=== PATIENT | female | born 1980 | race African-American/Black ===

== ENCOUNTER 2018-11-12 11:03 | Outpatient (CLI) | payer OTHER, SELFPAY ==
[2018-11-12 11:33] LABS: #Eosinphils 0.1 thou/uL (0.0-0.7); #Lymphocytes 1.1 thou/uL (1.20-3.40); #Monocytes 0.2 thou/uL (0.11-0.59); #Neutrophils 1.8 thou/uL (1.40-6.50); %Eosinophils 1.8 % (0.0-10.0); %Lymphocytes 34.9 % (21.0-51.0); %Monocytes 6.5 % (0.0-10.0); %Neutrophils 55.8 % (42.0-75.0); Hemoglobin 10.6 g/dL (12.0-16.0); Mean Corpuscular HGB CONC 30.8 g/dL (32.0-36.0); Mean Corpuscular Hemoglobin 25.6 pg (27.0-31.0); Mean Corpuscular Volume 83.2 fL (78.0-98.0); Mean Platelet Volume 6.9 fL (7.4-10.4); Platelet Count 230 thou/uL (130-400); RBC Distribution Width 15.4 % (11.5-14.5); Red Blood Cell (RBC) Count 4.12 mill/uL (4.20-5.40); White Blood Cell (WBC) Count 3.2 thou/uL (4.8-10.8)
[2018-11-12 11:45] LABS: ALT (SGPT) 15 U/L (8-55); AST (SGOT) 12 U/L (5-34); Alkaline Phosphatase 60 U/L (40-150); Anion Gap 11 mmol/L (10-20); BUN (Urea Nitrogen) 11 mg/dL (7.0-18.7); Bilirubin, Total 0.2 mg/dL (0.2-1.2); Calc. Creatinine Clearance 0 mL/min (70-130); Calcium 9.3 mg/dL (7.8-10.44); Carbon Dioxide 26 mmol/L (22-29); Cardiac Risk 4.3 (Less than 4.5); Chloride 106 mmol/L (98-107); Cholesterol 202 mg/dl (< 200 Desired); Estimated GFR-MDRD Greater than 90; Globulin 3.7 g/dL (2.4-3.5); Glucose 97 mg/dL (70-105); HDL Cholesterol 47 mg/dL (>60 Neg Risk); LDL Cholesterol, Calculated 141 mg/dL; Potassium 4.1 mmol/L (3.5-5.1); Protein, Total 7.7 g/dL (6.0-8.3); Sodium 139 mmol/L (136-145); Triglycerides 70 mg/dL (Less than 150)
--- NOTE | 2018-11-12 11:48 | RAD ---
XR Lumbar Spine 2 Or 3 View: 11/12/2018 11:19 AM CLINICAL INDICATION: Lumbago with sciatica COMPARISON: 03/01/2015 FINDINGS: Fracture:No fracture. Arthropathy:Mild multilevel change with slight progression Incidental findings:Moderate retained fecal material colon. IMPRESSION: 1. No acute osseous abnormality. 2. Mild degenerative change.
[2018-11-12 12:04] LABS: Thyroid Stimulating Hormone 1.2229 uIU/mL (0.35-4.94)
[2018-11-12 17:37] LABS: Vitamin D, 25 Hydroxy 7.3 ng/ml (> 30.0)
== END 2018-11-12 11:04 | disposition home or self-care (01) ==
LOC: MADLABBHPM 11:03
PROVIDERS: ATTEND Family Medicine
DX: Z00.00 Encounter for general adult medical examination without abnormal findings (principal); M54.41 Lumbago with sciatica, right side; M47.816 Spondylosis without myelopathy or radiculopathy, lumbar region
CPT/HCPCS: 36415; 72100; 80053; 80061; 82306; 83036; 84443; 85025

== ENCOUNTER 2018-12-23 00:12 | Emergency (ER) | payer OTHER, MEDICAID | END 2018-12-23 00:35 | disposition home or self-care (01) | LOC: MADERS 00:12 | DX: M25.562 Pain in left knee (principal); E66.9 Obesity, unspecified; I10 Essential (primary) hypertension; Z79.899 Other long term (current) drug therapy | CPT/HCPCS: 99281 ==

== ENCOUNTER 2021-06-12 14:51 | Emergency (ER) | payer MEDICAID ==
[2021-06-12] MEDS ORDERED: Dexamethasone 10 MG/ML VIAL ONE (17:09)
[2021-06-12 17:32] LABS: Bilirubin Negative (Negative); Blood, Urine Negative (Negative); Glucose, Urine (Dipstick) Negative (Negative); Ketone, Urine 15 mg/dL (Negative); Leukocyte Negative (Negative); Nitrite Negative (Negative); Protein, Urine (Dipstick) 30 mg/dL (Neg-Trace); Specific Gravity, Urine 1.025 (1.005-1.030)
[2021-06-12 17:33] LABS: Clarity Hazy (Clear)
[2021-06-12 17:34] LABS: Pregnancy Test - Urine (BHCG) Negative (Negative); Pregu Control Background? CLEAR/WHITE (CLR/WHITE); Pregu Control Bar Appear? YES (CONTROL BAR); Specific Gravity 1.025 (1.002-1.036)
[2021-06-12 17:38] LABS: Bacteria/HPF 1+ HPF (None Seen); RBC/HPF 0-3 HPF (0-3); Trichomonas/HPF 1+ HPF (None Seen)
[2021-06-13 14:00] LABS: SARS-CoV-2 PCR by NAA DETECTED (NotDetected)
== END 2021-06-12 15:49 | disposition home or self-care (01) ==
LOC: MADERS 14:51
DX: U07.1 COVID-19 (principal); M54.50 Low back pain, unspecified; I10 Essential (primary) hypertension; E66.9 Obesity, unspecified
CPT/HCPCS: 81003; 81015; 81025; 96372; 99283; J1100; U0003; U0005

== ENCOUNTER 2021-08-27 15:09 | Emergency (ER) | payer OTHER, MEDICAID ==
[2021-08-27] MEDS ORDERED: Ibuprofen 800 MG TAB ONE (16:17)
== END 2021-08-27 17:07 | disposition home or self-care (01) ==
LOC: MADERS 15:09
DX: S63.501A Unspecified sprain of right wrist, initial encounter (principal); I10 Essential (primary) hypertension; X50.0XXA Overexertion from strenuous movement or load, initial encounter; Y92.89 Other specified places as the place of occurrence of the external cause

== ENCOUNTER 2022-05-08 17:30 | Emergency (ER) | payer BC ==
[~2022-05-08 17:30] MED LIST: Iopamidol 370 76% 125 ML VIAL FS ONE
[2022-05-08] MEDS ORDERED: Aspirin 325 MG TAB ONE (18:18)
[2022-05-08 18:53] LABS: #Basophils 0.1 thou/uL (0.0-0.2); #Lymphocytes 1.8 thou/uL (1.20-3.40); #Monocytes 0.3 thou/uL (0.11-0.59); #Neutrophils 2.4 thou/uL (1.40-6.50); %Basophils 1.3 % (0.0-1.0); %Eosinophils 0.9 % (0.0-10.0); %Lymphocytes 39.5 % (21.0-51.0); %Monocytes 6.2 % (0.0-10.0); %Neutrophils 52.2 % (42.0-75.0); Hemoglobin 12.1 g/dL (12.0-16.0); Mean Corpuscular HGB CONC 31.6 g/dL (32.0-36.0); Mean Corpuscular Hemoglobin 27.1 pg (27.0-31.0); Mean Corpuscular Volume 85.9 fl (78.0-98.0); Mean Platelet Volume 8.8 fL (7.4-10.4); Platelet Count 232 10x3/uL (130-400); RBC Distribution Width 14.5 % (11.5-14.5); Red Blood Cell (RBC) Count 4.44 mill/uL (4.20-5.40); White Blood Cell (WBC) Count 4.6 10x3/uL (4.8-10.8)
[2022-05-08 19:07] LABS: ALT (SGPT) 18 U/L (8-55); AST (SGOT) 14 U/L (5-34); Albumin 4.1 g/dL (3.5-5.0); Alkaline Phosphatase 65 U/L (40-110); Anion Gap 15 mmol/L (10-20); BUN (Urea Nitrogen) 16 mg/dL (7.0-18.7); Bilirubin, Total 0.3 mg/dL (0.2-1.2); Calc. Creatinine Clearance 0 mL/min (70-130); Calcium 9.9 mg/dL (7.8-10.44); Carbon Dioxide 23 mmol/L (22-29); Chloride 105 mmol/L (98-107); Estimated GFR 97; Globulin 4.1 g/dL (2.4-3.5); Glucose 78 mg/dL (70-105); Magnesium 1.8 mg/dL (1.6-2.6); Potassium 3.4 mmol/L (3.5-5.1); Protein, Total 8.2 g/dL (6.0-8.3); Sodium 140 mmol/L (136-145)
[2022-05-08] MEDS ORDERED: Mag-Al Plus 1200 MG/1200 MG/120 MG/30 ML UDCUP ONE (21:33)
[2022-05-08] MEDS ORDERED: Lidocaine Viscous Sol 2% 15 ml UD Cup ONE (21:33)
== END 2022-05-08 22:30 | disposition home or self-care (01) ==
LOC: MADERS 17:30
DX: K21.00 Gastro-esophageal reflux disease with esophagitis, without bleeding (principal); E66.9 Obesity, unspecified; I10 Essential (primary) hypertension; Z79.899 Other long term (current) drug therapy
CPT/HCPCS: 36415; 71045; 71275; 80053; 83735; 84484; 85025; 85379; 93005; Q9967